=== PATIENT | female | born 1955 | race Caucasian/White ===

== ENCOUNTER 2017-06-03 04:05 | Observation (INO) | payer OTHER ==
[2017-06-03] VITALS (7 sets, daily range): BP systolic 117–161; BP diastolic 72–95; PULSE 71–93; RESP 14–20; TEMP 97.7–98.5; O2SAT 95–98
[~2017-06-03] VITALS: Ht 172.7 cm; Wt 103.6 kg
[~2017-06-03 04:05] MED LIST: ACET325T15 PO; ALPR.25 PO; ASA325 PO; BONI150T PO; CALC1TAB12 PO; CALC250 PO; COZA50TA PO; ESCI10TA PO; LEVO.075 PO; LIPI40TA PO; TIZA4 PO; VITA-142 PO; VITE400 PO; WARF-21 PO; WHEE1EAC
[2017-06-03] MEDS ORDERED: APIX5TAB PO (04:26)
[2017-06-03 05:09] LABS: AUTOMATED NEUTROPHIL # 6.2 TH/MM3 (1.8-7.7); BASOPHIL % 0.4 % (0.0-2.0); EOSINOPHIL # 0.1 TH/MM3 (0-0.4); EOSINOPHIL % 1.4 % (0.0-4.0); HEMATOCRIT 46.1 % (35.0-46.0); HEMOGLOBIN 15.8 GM/DL (11.6-15.3); LYMPH % 13.6 % (9.0-44.0); LYMPHOCYTE # 1.1 TH/MM3 (1.0-4.8); MEAN CELL VOLUME 95.2 FL (80.0-100.0); MEAN CORPUSCULAR HEMOGLOBIN 32.7 PG (27.0-34.0); MEAN CORPUSCULAR HGB CONC 34.4 % (32.0-36.0); MEAN PLATELET VOLUME 7.2 FL (7.0-11.0); MONOCYTE # 0.7 TH/MM3 (0-0.9); NEUT % 76.6 % (16.0-70.0); PLATELET COUNT 248 TH/MM3 (150-450); RED BLOOD COUNT 4.84 MIL/MM3 (4.00-5.30); RED CELL DISTRIBUTION WIDTH 13.4 % (11.6-17.2); WHITE BLOOD COUNT 8.1 TH/MM3 (4.0-11.0)
--- NOTE | 2017-06-03 05:21 | PD ---
HPI Chief Complaint: General Weakness Time Seen by Provider: 04:30 Travel History International Travel<30 days: No Contact w/Intl Traveler<30days: No Traveled to known affect area: No History of Present Illness HPI The patient is a 61 year old female who presents to the [facility] emergency department with a history of generalized weakness in the lower extremities that she reports began this evening. She reports that she believes that she overdid it with her activity. 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 The patient reports that she is on Eliquis. She reports that she has been getting around with a walker. She reports that she did extra exercise on her elliptical earlier today and also did several circles around her kitchen. The patient's neurologic history is also complicated by having syringomyelia and Arnold-Chiari malformation with multiple surgeries and residual weakness of the left upper extremity and some weakness of the slip laster of the right upper extremity to a lesser degree. The patient additionally reports that she had a stroke in March 2017 and went to [place] for rehabilitation up until the end of March. She reports that she is interested in going back to [place] for continued rehabilitation. On review of systems otherwise, the patient denies having any known recent fevers, cough or congestion, new neck pain, chest pain, shortness of breath, abdominal pain, vomiting, urinary symptoms, or new focal neurologic symptoms. The patient was brought in by ambulance services and had a normal blood sugar noted prior to arrival. The patient reports on review of systems having diarrhea since starting on Eliquis usually is soft stool 4 times per day. She denies having any blood in her stool or black or tarry stools [facility] Past Medical History Narrative Medical The patient's past medical history is significant for syringomyelia, Arnold- Chiari malformation, diabetes mellitus, osteopenia, chronic myofascial and neuropathic pain with neuropathy, history of hyperlipidemia, hypertension, seasonal allergies, history of hypothyroid disorder, history of cerebrovascular accident in March 2017, history of left basal artery occlusion in April of 2017, history of concussion in 2000. Hx Anticoagulant Therapy: Yes Arthritis: Yes Asthma: No Autoimmune Disease: No Blood Disorders: No Anxiety: No Depression: No Heart Rhythm Problems: No Cancer: No Cardiovascular Problems: No High Cholesterol: Yes Chemotherapy: No Chest Pain: No Congestive Heart Failure: No COPD: No Cerebrovascular Accident: Yes Diabetes: No Diminished Hearing: No Endocrine: No Gastrointestinal Disorders: Yes (always constipated ) GERD: No Genitourinary: No Hiatal Hernia: No Hypertension: Yes Immune Disorder: No Kidney Stones: No Musculoskeletal: Yes (bilateral hands / back) Neurologic: Yes Psychiatric: No Reproductive: No Respiratory: No Migraines: No Radiation Therapy: No Renal Failure: No Seizures: Yes (2000 after falling from a horse) Sickle Cell Disease: No Sleep Apnea: No Thyroid Disease: Yes (hypoactive thyroid) Ulcer: No Influenza Vaccination: Yes ?: Not Past Surgical History Narrative Surgical The patient's past surgical history is significant for right wrist ORIF, appendectomy, suboccipital craniotomy, laminectomy, myelotomy, and drainage of syrinx. AICD: No Appendectomy: Yes Arteriovenous Shunt: Yes (in spinal cord ) Cardiac Surgery: No Ear Surgery: No Endocrine Surgery: No Eye Surgery: No Genitourinary Surgery: Yes Gynecologic Surgery: No Insulin Pump: No Joint Replacement: No Neurologic Surgery: Yes Oral Surgery: Yes (wisdom teeth removed / crowns) Pacemaker: No Thoracic Surgery: No Other Surgery: Yes Social History Alcohol Use: Yes Tobacco Use: No Substance Use: No Allergies-Medications (Allergen,Severity, Reaction): Coded Allergies: No Known Allergies (Unverified Adverse Reaction, Unknown, 06/03/17) Reported Meds & Prescriptions Reported Meds & Active Scripts Active Xanax (Alprazolam) 0.25 Mg Tab 0.25 Mg PO Q12HR PRN Zanaflex (Tizanidine HCl) 4 Mg Tab 4 Mg PO BID PRN 30 Days Cozaar (Losartan Potassium) 50 Mg Tab 50 Mg PO BID@0600,1800 30 Days Synthroid (Levothyroxine Sodium) 75 Mcg Tab 75 Mcg PO DAILY@0600 30 Days Lipitor (Atorvastatin Calcium) 40 Mg Tab 40 Mg PO HS Wheelchair 1 Each Each Each Reported Eliquis (Apixaban) 5 Mg Tab 5 Mg PO BID Calcium 500 +D (Calcium Carbonate-Cholecalciferol) 500-400 Mg-Unit Tab 1 Tab PO BID Review of Systems Except as stated in HPI: all other systems reviewed are Neg General / Constitutional: No: Fever Eyes: No: Visual changes HENT: No: Headaches Cardiovascular: No: Chest Pain or Discomfort Respiratory: No: Shortness of Breath Gastrointestinal: Positive: Diarrhea, Changes in Bowel Habits, No: Nausea, Vomiting, Abdominal Pain, Hematemesis, Hematochezia, Indigestion, Loss of Appetite Genitourinary: No: Dysuria Musculoskeletal: No: Pain Skin: No Rash Neurologic: Positive: Weakness, No: Focal Abnormalities, Change in Mentation, Slurred Speech, Sensory Disturbance Psychiatric: No: Depression Endocrine: No: Polydipsia Hematologic/Lymphatic: No: Easy Bruising Physical Exam Narrative General: The patient is a well-developed well-nourished female in no acute distress. Head and Neck exam: Head is normocephalic atraumatic. Eyes: EOMI, pupils are equal round and reactive to light. Nose: Midline septum with pink mucous membranes Mouth: Dentition unremarkable. Moist mucus membranes. Posterior oropharynx is not erythematous. No tonsillar hypertrophy. Uvula midline. Airway patent. Neck: No palpable lymphadenopathy. No nuchal rigidity. No thyromegaly. Cardiovascular: Regular rate and rhythm without murmurs, gallops, or rubs. No pulse deficit to the extremities on simultaneous auscultation and palpation of her radial artery. Lungs: Clear to auscultation bilaterally. No wheezes, rhonchi, or rales. Abdomen: Soft, without tenderness to palpation in all 4 quadrants of the abdomen. No guarding, rebound, or rigidity. Normal bowel sounds are audible. No tenderness on palpation of McBurney's point. Negative Laura sign. Extremities: No clubbing, cyanosis, or edema. 2+ pulses in all 4 extremities. No calf tenderness on palpation. The patient has deformity of bilateral hands which she reports is related to her history of syringomyelia and Arnold-Chiari malformation with neuropathy causing contractures. Back: No spinous process tenderness to palpation. No costovertebral angle tenderness to palpation. Neurologic Exam: The patient has no facial asymmetry noted. Cranial nerves II through XII appear to be intact. The patient has no dysarthria, no difficulty with word finding ability or aphasia. The patient has strength that is 5/5 in bilateral lower extremities, strength is 5/5 in the right upper extremity, strength is 4/ 5 in the left upper extremity. The patient reports that this is at her baseline from her history of syringomyelia. Skin Exam: No rash noted. Intact skin that is warm and dry. Data Data Last Documented VS Vital Signs Date Time Temp Pulse Resp B/P (MAP) Pulse Ox O2 Delivery O2 Flow Rate FiO2 06/03/17 04:40 20 06/03/17 04:14 98.1 93 161/72 (101) 96 Orders Orders Electrocardiogram (06/03/17 04:34) Complete Blood Count With Diff (06/03/17 04:34) Comprehensive Metabolic Panel (06/03/17 04:34) Troponin I (06/03/17 04:34) Prothrombin Time / Inr (Pt) (06/03/17 04:34) Act Partial Throm Time (Ptt) (06/03/17 04:34) Lipase (06/03/17 04:34) Urinalysis - C+S If Indicated (06/03/17 04:34) Magnesium (Mg) (06/03/17 04:34) Thyroid Stimulating Hormone (06/03/17 04:34) Ct Brain W/O Iv Contrast(Rout) (06/03/17 04:34) Iv Access Insert/Monitor (06/03/17 04:34) Ecg Monitoring (06/03/17 04:34) Oximetry (06/03/17 04:34) Place In Observation (06/03/17 ) Code Status (06/03/17 06:33) Vital Signs (Adult) Q4H (06/03/17 06:33) Activity Oob With Assistance (06/03/17 06:33) [employer] / Telemetry .CONTINUOUS (06/03/17 06:33) Diet Heart Healthy (06/03/17 Breakfast) Sodium Chloride 0.9% Flush (Ns Flush) (06/03/17 06:45) Sodium Chloride 0.9% Flush (Ns Flush) (06/03/17 09:00) Acetaminophen (Tylenol) (06/03/17 06:45) Ondansetron Inj (Zofran Inj) (06/03/17 06:45) Basic Metabolic Panel (Bmp) (06/04/17 06:00) Comprehensive Metabolic Panel (06/04/17 06:00) Chest, Single Ap (06/03/17 06:33) Pt Request For Service (06/03/17 06:33) Scd Bilateral/Knee High SHIMA.BID (06/03/17 06:33) Naloxone Inj (Narcan Inj) (06/03/17 06:45) Magnesium Hydroxide Liq (Milk Of Magnesi (06/03/17 06:45) Consult Neurology (06/03/17 ) Thyroid Stimulating Hormone (06/04/17 06:00) Admit Order (Ed Use Only) (06/03/17 06:41) Labs Laboratory Tests Test 06/03/17 04:45 White Blood Count 8.1 TH/MM3 Red Blood Count 4.84 MIL/MM3 Hemoglobin 15.8 GM/DL Hematocrit 46.1 % Mean Corpuscular Volume 95.2 FL Mean Corpuscular Hemoglobin 32.7 PG Mean Corpuscular Hemoglobin Concent 34.4 % Red Cell Distribution Width 13.4 % Platelet Count 248 TH/MM3 Mean Platelet Volume 7.2 FL Neutrophils (%) (Auto) 76.6 % Lymphocytes (%) (Auto) 13.6 % Monocytes (%) (Auto) 8.0 % Eosinophils (%) (Auto) 1.4 % Basophils (%) (Auto) 0.4 % Neutrophils # (Auto) 6.2 TH/MM3 Lymphocytes # (Auto) 1.1 TH/MM3 Monocytes # (Auto) 0.7 TH/MM3 Eosinophils # (Auto) 0.1 TH/MM3 Basophils # (Auto) 0.0 TH/MM3 CBC Comment DIFF FINAL Differential Comment Prothrombin Time 10.6 SEC Prothromb Time International Ratio 1.0 RATIO Activated Partial Thromboplast Time 25.9 SEC Blood Urea Nitrogen 8 MG/DL Creatinine 0.71 MG/DL Random Glucose 115 MG/DL Total Protein 6.9 GM/DL Albumin 3.5 GM/DL Calcium Level 9.1 MG/DL Magnesium Level 2.2 MG/DL Alkaline Phosphatase 90 U/L Aspartate Amino Transf (AST/SGOT) 20 U/L Alanine Aminotransferase (ALT/SGPT) 30 U/L Total Bilirubin 0.4 MG/DL Sodium Level 146 MEQ/L Potassium Level 3.6 MEQ/L Chloride Level 111 MEQ/L Carbon Dioxide Level 27.2 MEQ/L Anion Gap 8 MEQ/L Estimat Glomerular Filtration Rate 84 ML/MIN Troponin I LESS THAN 0.02 NG/ML Lipase 101 U/L Free Thyroxine 1.47 NG/DL Thyroid Stimulating Hormone 3rd Gen 0.013 uIU/ML MDM Medical Decision Making Medical Screen Exam Complete: Yes Emergency Medical Condition: Yes Medical Record Reviewed: Yes Interpretation(s) Last Impressions Chest X-Ray 06/03/17 0633 Signed Impressions: Service Date/Time: Saturday, June 03, 2017 06:41 - CONCLUSION: No acute disease. There is no evidence of pneumonia. Brent Cadena MD Head CT 06/03/17 0434 Signed Impressions: Service Date/Time: Saturday, June 03, 2017 04:58 - CONCLUSION: 1. Stable remote infarct left occipital lobe. No acute findings. Jose Merritt MD Head Magnetic Resonance Angiography 06/03/17 0000 Signed Impressions: Service Date/Time: Saturday, June 03, 2017 16:23 - CONCLUSION: Normal examination. No evidence of significant stenosis or occlusive disease. No evidence of intraluminal filling defects, vasculopathy, aneurysm or vascular malformation. Haim Cruz MD Cervical Spine MRI 06/03/17 0000 Signed Impressions: Service Date/Time: Saturday, June 03, 2017 16:23 - CONCLUSION: 1. Deformity of the C5 and C6 vertebral bodies which are fused and appears post traumatic. 2. Posterior laminectomy defect from C2-C5 3. Degenerative disc disease at C4-5 and C6-7 as described. 4. No evidence of acute bone marrow edema, fracture disc herniation or spinal stenosis. 5. 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 Haim Cruz MD Brain MRI 06/03/17 0000 Signed Impressions: Service Date/Time: Saturday, June 03, 2017 16:23 - CONCLUSION: 1. Subacute left occipital lobe infarct 2. Otherwise stable exam without evidence of acute process. 3. No evidence of enhancing intra-or extra-axial lesions. Haim Cruz MD Differential Diagnosis Intracranial abnormality, versus electrolyte derangements causing generalized weakness, versus dehydration, versus acute coronary syndrome, versus infectious process Narrative Course During the course of the patient's emergency department visit, the patient's history, examination, and differential diagnosis were reviewed with the patient. The patient was placed on a shade hanger with oximetry and frequent blood pressure monitoring. The patient had IV access obtained and blood work sent for analysis. An EKG was done on arrival. The patient's EKG shows a sinus rhythm heart rate of 89, QRS duration 102 ms, QTC [address] segment elevation is noted. The patient's studies were reviewed and remarkable for A white count of 8.1, hemoglobin 15.8, platelets 248 was 76.6 neutrophils. CMP is remarkable for sodium of 146, chloride 111, glucose 115, troponin I less than 0.02, lipase 101 , TSH is low at 0.013. PT PTT unremarkable, urinalysis is unremarkable. Chest x-ray shows no acute abnormality. CT scan of the brain shows an occipital infarct and left occiput that is stable and remote according to the radiologist. The patient will be admitted to the hospital for generalized weakness and frequent falls. The patient's results were discussed with the patient, including the plan of care. I explained that further testing and/ or monitoring is indicated based on the patient's history, examination, and/ or laboratory findings. Therefore, I recommended admission for additional evaluation. The patient expressed understanding and was agreeable with this plan. The patient was admitted to the hospital in stable condition and sent to a bed under the care of the [facility] service. Physician Communication Physician Communication The patient's case including history, pertinent physical examination findings, and laboratory studies were discussed with Dr. Bradshaw. It was agreed that the patient would be admitted to the [facility] service. Diagnosis Primary Impression: Generalized weakness Admitting Information Admitting Physician Requests: Observation Scripts Alprazolam (Xanax) 0.25 Mg Tab 0.25 MG PO Q12HR Y for ANXIETY, #120 TAB 0 Refills Prov: Dev Bradshaw DO 06/03/17 Tizanidine (Zanaflex) 4 Mg Tab 4 MG PO BID Y for MUSCLE SPASM for 30 Days, #120 TAB 3 Refills Prov: Dev Bradshaw DO 06/03/17 Karen Pool MD Jun 03, 2017 05:21
[2017-06-03 05:22] LABS: PROTHROMBIN TIME - PATIENT 10.6 SEC (9.8-11.6)
--- NOTE | 2017-06-03 05:28 | RADRPT ---
EXAM DATE/TIME: 06/03/2017 04:58 [facility] COMPARISON: No previous studies available for comparison. INDICATIONS : Weakness. Fell twice. RADIATION DOSE: 36.81 CTDIvol (mGy) MEDICAL HISTORY : Cerebrovascular disease. Seizures. Hypertension. SURGICAL HISTORY : Appendectomy. Craniotomy. ENCOUNTER: Initial ACUITY: 1 day PAIN SCALE: 0/10 LOCATION: cranial TECHNIQUE: Multiple contiguous axial images were obtained of the head. Using automated exposure control and adj ustment of the mA and/or kV according to patient size, radiation dose was kept as low as reasonably a chievable to obtain optimal diagnostic quality images. DICOM format image data is available electro nically for review and comparison. FINDINGS: Compare April 26. Stable remote infarct left occipital lobe. No acute intracranial mass, hemorrhag e or shift. Esophagus. No acute bony abnormalities. CONCLUSION: 1. Stable remote infarct left occipital lobe. No acute findings. Jose Merritt MD on June 03, 2017 at 5:25 Board Certified Radiologist. This report was verified electronically.
[2017-06-03 05:38] LABS: ALBUMIN 3.5 GM/DL (3.4-5.0); ALT (GPT) 30 U/L (10-53); AST (GOT) 20 U/L (15-37); BICARBONATE 27.2 MEQ/L (21.0-32.0); BLOOD UREA NITROGEN 8 MG/DL (7-18); CALCIUM 9.1 MG/DL (8.5-10.1); CHLORIDE 111 MEQ/L (98-107); CREATININE 0.71 MG/DL (0.50-1.00); GLOMERULAR FILTRATION RATE 84 ML/MIN (>89); GLUCOSE,RANDOM 115 MG/DL (74-106); MAGNESIUM 2.2 MG/DL (1.5-2.5); SODIUM (NA) 146 MEQ/L (136-145)
[2017-06-03 05:48] LABS: ALKALINE PHOSPHATASE 90 U/L (45-117); TOTAL BILIRUBIN ADULT 0.4 MG/DL (0.2-1.0); TOTAL PROTEIN 6.9 GM/DL (6.4-8.2); TROPONIN I LESS THAN 0.02 NG/ML (0.02-0.05)
[2017-06-03] MEDS ORDERED: TIZA4 PO (06:43)
[2017-06-03] MEDS ORDERED: ALPR.25 PO (06:43)
[2017-06-03] MEDS ORDERED: NALOXONE HCL 0.4 MG/ML AMP IV PUSH PRN ×2 (06:45→11:45)
[2017-06-03] MEDS ORDERED: SODIUM CHLORIDE 0.9% FLUSH 10 ML FLUSH IV FLUSH PRN ×2 (06:45→11:45)
[2017-06-03] MEDS ORDERED: MAGNESIUM HYDROXIDE SUSP 30 ML CUP PO PRN ×2 (06:45→11:45)
[2017-06-03] MEDS ORDERED: ACETAMINOPHEN 325 MG TAB PO PRN ×2 (06:45→11:45)
[2017-06-03] MEDS ORDERED: ONDANSETRON HCL 4 MG/2 ML VIAL IVP PRN ×2 (06:45→11:45)
--- NOTE | 2017-06-03 07:00 | RADRPT ---
EXAM DATE/TIME: 06/03/2017 06:41 [facility] COMPARISON: CHEST SINGLE AP, March 14, 2017, 15:28. INDICATIONS : Cough. MEDICAL HISTORY : Cerebrovascular disease. Seizures. Hypertension. SURGICAL HISTORY : Appendectomy. Craniotomy. ENCOUNTER: Initial ACUITY: 1 day PAIN SCORE: 0/10 LOCATION: Bilateral chest FINDINGS: A single view of the chest demonstrates the lungs to be symmetrically aerated without evidence of mas s, infiltrate or effusion. The cardiomediastinal contours are unremarkable. Osseous structures are intact. Mild atherosclerotic changes are again noted in the aorta with calcification. The overlying e lectrocardiogram leads. The left hemidiaphragm remains mildly elevated. CONCLUSION: No acute disease. There is no evidence of pneumonia. Brent Cadena MD on June 03, 2017 at 6:58 Board Certified Radiologist. This report was verified electronically.
[2017-06-03 07:45] LABS: BACTERIA, URINE RARE /hpf; BILIRUBIN, URINE NEG (NEG); BLOOD, URINE NEG (NEG); GLUCOSE,URINE NEG (NEG); KETONE, URINE NEG (NEG); MUCUS URINE FEW /lpf (OCC); NITRITE,URINE NEG (NEG); PH, URINE 6.5 (5.0-8.5); SQUAMOUS EPITHELIAL CELL URINE 1 /hpf (0-5); URINE COLOR YELLOW (YELLW/STRAW); URINE LEUKOCYTE ESTERASE SMALL (NEG)
[2017-06-03] MEDS ORDERED: SODIUM CHLORIDE 0.9% FLUSH 10 ML FLUSH IV FLUSH SCH (09:00)
[2017-06-03] MEDS: APIXABAN 5 MG TABLET PO SCH ×2 (09:13→22:58)
[2017-06-03] MEDS: ALPRAZolam 0.25 MG TAB PO PRN ×2 (09:37→22:58)
--- NOTE | 2017-06-03 11:05 | HHI.HP ---
[facility] Service Family Medicine Primary Care Physician Ria Solis MD Admission Diagnosis Generalized weakness, recurrent falls, low TSH Diagnoses: International Travel<30 Days: No Contact w/Intl Traveler<30days: No Known Affected Area: No History of Present Illness Mrs. Rowland is a 61-year-old Female w/PHMx of syringomyelia and chronic left sided weakness from syrinx; diabetes, hypertension, hyperlipidemia and CVA in March 2017 and again CVA on 04/26/17. Patient states that since her last stroke she has had great difficulty rehabilitating herself at home. She has tried to organize outpatient physical therapy has only been able to do it twice. It has generally been very difficult for her and friend to help her mobilize in her current state. Yesterday she "did too much"; she was on the exercise bike and did a lot more activity than usual. She got sore around her buttocks area and the top of her hips from the excessive exercise. Around 9: 15PM she went to the bathroom and after getting off the toilet grab her walker and fell. Her and neighbor were unable to pick her up in the paramedics had to be called to pick her up. Only her knees and bottom make contact with the floor. She did not hit her head at any point. She denies any confusion, vertigo, dizziness before the fall. She states she fell because her muscles felt weak. She fell again for second time last night, and The patient came into the ED this morning because she states that she is no longer feeling safe at home. Because of the multiple falls and lack of adequate rehabilitation she would like to go back to [place]. At this time knees and gluteal muscles are still sore. Denies any headache/ confusion. Denies any CP/SOB/dizziness. She denies any acute onset focal weaknesses. Denies any numbness or tingling of any extremity. 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 There have been no recent medication changes, aside from stopping Toradol. (Iman Davey MD R2) Review of Systems Constitutional: DENIES: Fever, Weight loss Endocrine: DENIES: Heat/cold intolerance, Polydipsia Eyes: DENIES: Eye inflammation, Eye pain Ears, nose, mouth, throat: DENIES: Throat pain, Hoarseness Respiratory: DENIES: Sputum production, Shortness of breath Cardiovascular: DENIES: Syncope, Dyspnea on Exertion Gastrointestinal: DENIES: Diarrhea, Nausea Genitourinary: DENIES: Abnormal vaginal bleeding, Dysmenorrhea Musculoskeletal: DENIES: Joint Swelling, Back pain Neurologic: DENIES: Headache Psychiatric: DENIES: Depression (Iman Davey MD R2) Past Family Social History Past Medical History CVA March and April 2017 preDM (on steroids) 11/17 osteopenia 2013 (Pt s/p fosamax weekly estim 2003- 2008), now on bisphosphanate holiday Chronic myofascial and neuropathic pain with neuropathy Chiari malformation with syringomyelia Hyperlipidemia Hypertension Seasonal allergies menopause 2006 Hypothyroid 1989 desensitization shots Right wrist fracture 2007 Left clavicle fracture age 4 Right leg fracture age 12 Head injury with concussion 2000 Past Surgical History Lap Appy 01/17, benign pathology Right wrist 2007 Suboccipital craniectomy, laminectomy C1-C4, myelotomy C4, with insertion of Silastic T-tube for drainage of syrinx into subarachnoid space August 1989 (Iman Davey MD R2) Allergies: Coded Allergies: No Known Allergies (Unverified Adverse Reaction, Unknown, 06/03/17) Family History Dad age 59 MA, history tobacco and alcohol Mom age 69 complications of colon cancer diagnosed in her mid 60s, also had rheumatoid arthritis Siblings with hyperlipidemia otherwise alive and well. Social History ,no natural children, spouse diagnosed with Hep B/ liver transplant has stepdaughter that she helped raise from age 9, and 2 grandchildren. 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 SKIN: No rashes, ecchymoses or lesions. Cool and dry. HEAD: Atraumatic. Normocephalic. No temporal or scalp tenderness. EYES: Pupils equal round and reactive. Extraocular motions intact. No scleral icterus. No injection or drainage. ENT: Nose without bleeding, purulent drainage or septal hematoma. Throat without erythema, tonsillar hypertrophy or exudate. Uvula midline. Airway patent. NECK: Trachea midline. No JVD or lymphadenopathy. Supple, nontender, no meningeal signs. CARDIOVASCULAR: Regular rate and rhythm without murmurs, gallops, or rubs. RESPIRATORY: Clear to auscultation. Breath sounds equal bilaterally. No wheezes , rales, or rhonchi. GASTROINTESTINAL: Abdomen soft, non-tender, nondistended. No hepato-splenomegaly , or palpable masses. No guarding. MUSCULOSKELETAL: Extremities without clubbing, cyanosis, or edema. No joint tenderness, effusion, or edema noted. No calf tenderness. Negative Homans sign bilaterally.All extremities 4/5 strength equally. Chronic contracture of hands unchanged NEUROLOGICAL: Awake and alert. Cranial nerves II through XII intact. Motor and sensory grossly within normal limits. Five out of 5 muscle strength in all muscle groups. Normal speech. Laboratory Laboratory Tests Test 06/03/17 04:45 06/03/17 07:15 White Blood Count 8.1 Red Blood Count 4.84 Hemoglobin 15.8 Hematocrit 46.1 Mean Corpuscular Volume 95.2 Mean Corpuscular Hemoglobin 32.7 Mean Corpuscular Hemoglobin Concent 34.4 Red Cell Distribution Width 13.4 Platelet Count 248 Mean Platelet Volume 7.2 Neutrophils (%) (Auto) 76.6 Lymphocytes (%) (Auto) 13.6 Monocytes (%) (Auto) 8.0 Eosinophils (%) (Auto) 1.4 Basophils (%) (Auto) 0.4 Neutrophils # (Auto) 6.2 Lymphocytes # (Auto) 1.1 Monocytes # (Auto) 0.7 Eosinophils # (Auto) 0.1 Basophils # (Auto) 0.0 CBC Comment DIFF FINAL Differential Comment Prothrombin Time 10.6 Prothromb Time International Ratio 1.0 Activated Partial Thromboplast Time 25.9 Blood Urea Nitrogen 8 Creatinine 0.71 Random Glucose 115 Total Protein 6.9 Albumin 3.5 Calcium Level 9.1 Magnesium Level 2.2 Alkaline Phosphatase 90 Aspartate Amino Transf (AST/SGOT) 20 Alanine Aminotransferase (ALT/SGPT) 30 Total Bilirubin 0.4 Sodium Level 146 Potassium Level 3.6 Chloride Level 111 Carbon Dioxide Level 27.2 Anion Gap 8 Estimat Glomerular Filtration Rate 84 Troponin I LESS THAN 0.02 Lipase 101 Thyroid Stimulating Hormone 3rd Gen 0.013 Urine Color YELLOW Urine Turbidity CLEAR Urine pH 6.5 Urine Specific [place] 1.009 Urine Protein NEG Urine Glucose (UA) NEG Urine Ketones NEG Urine Occult Blood NEG Urine Nitrite NEG Urine Bilirubin NEG Urine Urobilinogen LESS THAN 2.0 Urine Leukocyte Esterase SMALL Urine RBC 1 Urine WBC 1 Urine Squamous Epithelial Cells 1 Urine Bacteria RARE Urine Mucus FEW Microscopic Urinalysis Comment CULT NOT INDICATED (Iman Davey MD R2) Result Diagram: 06/03/1744406/03/17444 Caprini VTE Risk Assessment Caprini VTE Risk Assessment: No/Low Risk (score <= 1) Caprini Risk Assessment Model Point Value = 1 Point Value = 2 Point Value = 3 Point Value = 5 Age 41-60 Minor surgery BMI > 25 kg/m2 Swollen legs Varicose veins or History of unexplained or recurrent spontaneous Oral contraceptives or hormone replacement Sepsis (< 1 month) Serious lung disease, including pneumonia (< 1 month) Abnormal pulmonary function Acute myocardial infarction Congestive heart failure (< 1 month) History of inflammatory bowel disease Medical patient at bed rest Age 61-74 Arthroscopic surgery Major open surgery (> 45 min) Laparoscopic surgery (> 45 min) Malignancy Confined to bed (> 72 hours) Immobilizing plaster cast Central venous access Age >= 75 History of VTE Family history of VTE Factor V Leiden Prothrombin [id number] Lupus anticoagulant Anticardiolipin antibodies Elevated serum homocysteine Heparin-induced thrombocytopenia Other congenital or acquired thrombophilia Stroke (< 1 month) Elective arthroplasty Hip, pelvis, or leg fracture Acute spinal cord injury (< 1 month) Prophylaxis Regimen Total Risk Factor Score Risk Level Prophylaxis Regimen 0-1 Low Early ambulation 2 Moderate Order ONE of the following: *Sequential Compression Device (SCD) *Heparin 5000 units SQ BID 3-4 Higher Order ONE of the following medications: *Heparin 5000 units SQ TID *Enoxaparin/Lovenox 40 mg SQ daily (WT < 150 kg, CrCl > 30 mL/min) *Enoxaparin/Lovenox 30 mg SQ daily (WT < 150 kg, CrCl > 10-29 mL/min) *Enoxaparin/Lovenox 30 mg SQ BID (WT < 150 kg, CrCl > 30 mL/min) AND/OR *Sequential Compression Device (SCD) 5 or more Highest Order ONE of the following medications: *Heparin 5000 units SQ TID (Preferred with Epidurals) *Enoxaparin/Lovenox 40 mg SQ daily (WT < 150 kg, CrCl > 30 mL/min) *Enoxaparin/Lovenox 30 mg SQ daily (WT < 150 kg, CrCl > 10-29 mL/min) *Enoxaparin/Lovenox 30 mg SQ BID (WT < 150 kg, CrCl > 30 mL/min) AND *Sequential Compression Device (SCD) (Iman Davey MD R2) Assessment and Plan Assessment and Plan Mrs. Rowland is a 61-year-old Female w/PHMx of syringomyelia and chronic left sided weakness from syrinx; diabetes, hypertension, hyperlipidemia, and CVA x 2 presenting with persistent weakness and falls s/p CVA. Code Status Full Code (Iman Davey MD R2) Attending Attestation THIS CASE WAS DISCUSSED WITH THE RESIDENT PHYSICIAN. I HAVE REVIEWED THE RECORD AND AGREE WITH THE ABOVE NOTE AND PLAN OF CARE WAS DISCUSSED. I HAVE AUTHORIZED THE ORDER FOR PLACEMENT IN OUT-PATIENT OBSERVATION STATUS. (Ria Solis MD) Problem List: (1) Anxiety ICD Codes: F41.9 - Anxiety disorder, unspecified Status: Chronic Plan: Continue home Xanax 0.25 mg by mouth twice a day when necessary anxiety (2) HTN (hypertension) ICD Codes: I10 - Essential (primary) hypertension Status: Chronic Plan: BPs WNL Continue home blood pressure medication; losartan 50 mg twice a day f/u BPs (3) Impaired mobility and activities of daily living ICD Codes: Z74.09 - Other reduced mobility Status: Acute Plan: Generalized weakness and deconditioning since discharge on 05/04 Differential includes: lack of adequate rehab s/p CVA on 04/26 vs. neurological sx of hyperthyroidism ( proximal muscle weakness) versus electrolyte abnormalities versus anemia versus UTI BMP and CBC within normal limits, UA negative, vital signs stable TSH is 0.013 (low), free T4 1 0.47 (normal) f/u with [facility] Follow up with PT and OT See plan under Hypothyroidism below (4) Hypothyroid ICD Codes: E03.9 - Hypothyroidism, unspecified Status: Chronic Plan: History of hypothyroidism TSH severely reduced (see less than 0.05), with normal free T4 Reduce dosing 25 g per day Reduce home medication of levothyroxine 75 g daily to 50 g daily Follow-up TSH in 6-8 weeks (5) History of CVA (cerebrovascular accident) ICD Codes: Z86.73 - Personal history of transient ischemic attack (TIA), and cerebral infarction without residual deficits Status: Chronic Plan: Continue previous recommendations per neurology Continue statin; Lipitor 40 mg by mouth at bedtime Continue anticoagulation; Eliquis 5 mg by mouth twice a day No indication of acute onset focal deficits or acute CVA at this admission (6) FEN/GI/PPx Status: Acute Plan: Fluids: Encourage by mouth hydration Electrolytes: Within normal limits, follow-up and repeat as needed Nutrition: Regular by mouth diet DVT prophylaxis: Continue Eliquis, SCDs GI prophylaxis: Not indicated (Iman Davey MD R2) Iman Davey MD R2 Jun 03, 2017 11:05 Ria Solis MD Jun 04, 2017 08:41
[2017-06-03] MEDS ORDERED: SENNOSIDES 8.6 MG TAB PO PRN (11:45)
[2017-06-03] MEDS ORDERED: LACTULOSE SYRUP 20 GM/30 ML CUP PO PRN (11:45)
[2017-06-03] MEDS ORDERED: BISACODYL 10 MG SUPP RECTAL PRN (11:45)
--- NOTE | 2017-06-03 12:20 | EKG ---
Date Performed: 06/03/2017 Time Performed: 04:11:11 PTAGE: 61 years EKG: Sinus rhythm NORMAL ECG NO PREVIOUS TRACING DOCTOR: Shayan Britton Interpretating Date/Time 06/03/2017 12:16:30
--- NOTE | 2017-06-03 15:07 | MB ---
cc: Giovani Harrison MD, PhD DATE: 06/03/2017 REASON FOR CONSULTATION: Weakness with falls. HISTORY OF PRESENT ILLNESS: Ms. Rowland is a very pleasant 61-year-old female who has a history of Arnold Chiari malformation with cervical syringomyelia. She had history of suboccipital craniectomy in the 1980s as well as shunting of the syrinx in the s. She states she had a stroke in March causing her to be weak on the left side. She states she had a blood clot to the back of the brain in April, which caused her to be weak on the right side, as well as the left side and since then has been on Eliquis. Yesterday, she fell twice. She thinks she got weak in general and dizzy. She did start a new medicine Elavil at night on Sunday and thinks she may be having some side effects. PAST MEDICAL HISTORY: As noted above. In addition, she has a history of osteopenia, prediabetes, hyperlipidemia, hypertension, hypothyroidism, appendectomy, right wrist surgery, C1-4 myelotomy for syrinx. NEUROLOGICAL PHYSICAL EXAMINATION: VITAL SIGNS: Her blood pressure 121/76, pulse is 85, respiratory rate is 16, temperature 98 degrees. NEUROLOGIC: Higher cortical functions are normal. Cranial nerves intact. Motor exam: She is weak in both upper and lower extremities. I would rate it 4/5 proximally and distally with diminished fine motor skills in both hands. She has atrophy distally as well in the hands. Reflexes are 2+ symmetric with no Babinski. IMAGING STUDIES: CT of the brain shows remote infarct, left occipital lobe. No acute change identified. LABORATORY DATA: White count 8100, hemoglobin 15.8, hematocrit 46%, platelet count 240,000. Sodium is 146, potassium 3.6, chloride 111, CO2 27, BUN is 8, creatinine 0.71, GFR is 84, glucose 115, AST 20, ALT is 30. TSH 0.013. T4 of 1.47. PT 10.6, INR 1, APTT 25.9. UA negative. IMPRESSION: 1. History of Arnold Chiari malformation and cervical syrinx status post shunting of the syrinx and suboccipital craniotomy. 2. Recent stroke x 2 in March, then in April. By history sounds as though she had a brainstem event. 3. Generalized weakness with falls. This may be sequelae from her previous history. However, I would like to repeat an MRI of the brain to rule out any acute stroke. Also, would like to obtain MRI cervical spine to be sure the cervical syrinx is not enlarging. She may be also having side effects from Elavil and will therefore discontinue that medication. Giovani Harrison MD, PhD MENDEZ/JOSE , 02:51 PM , 03:06 PM
--- NOTE | 2017-06-03 16:56 | RADRPT ---
EXAM DATE/TIME: 06/03/2017 16:23 [facility] COMPARISON: MRA BRAIN W/O CONTRAST, April 27, 2017, 9:49. INDICATIONS : Fall. H/O basilar artery thrombosis. MEDICAL HISTORY : Hypertension. SURGICAL HISTORY : Appendectomy. Fusion, cervical. Craniectomy. Loop recorder. ENCOUNTER: Initial ACUITY: 1 day PAIN SCORE: 0/10 LOCATION: Paraspinal Please note a normal MRA of the brain does not entirely exclude the possibility of a small aneurysm, nor the possibility of distal intracranial vessel disease. TECHNIQUE: 3D time of flight MRA was performed. Source images, multiplanar STS MIP, and 3D volume MIP reconstru ctions were reviewed. FINDINGS: There is excellent visualization of the major intracranial arteries out to the second-order branch ve ssels. There is no evidence for aneurysm, vessel truncation or stenosis, and no evidence for vascula r malformation. CONCLUSION: Normal examination. No evidence of significant stenosis or occlusive disease. No evidence of intraluminal filling defects, vasculopathy, aneurysm or vascular malformation. Haim Cruz MD on June 03, 2017 at 16:52 Board Certified Radiologist. This report was verified electronically.
[2017-06-03] MEDS ORDERED: GADODIAMIDE PF 287 MG/ML 20 ML VIAL (for RAD MRI) IVCONTRAST ONE (16:58)
--- NOTE | 2017-06-03 17:36 | RADRPT ---
EXAM DATE/TIME: 06/03/2017 16:23 [facility] COMPARISON: MRI BRAIN W & W/O CONTRAST, April 26, 2017, 15:05. INDICATIONS : Craniectomy. Loop recorder. CONTRAST: 16 cc Omniscan (gadodiamide) IV MEDICAL HISTORY : Hypertension. SURGICAL HISTORY : Appendectomy. Fusion, cervical. Craniectomy. Loop recorder. ENCOUNTER: Initial ACUITY: 1 day PAIN SCORE: 0/10 LOCATION: cranial TECHNIQUE: Multiplanar, multisequence MRI of the brain was performed both prior to and following the administrat ion of paramagnetic contrast. FINDINGS: An evolving infarct is identified in the left occipital lobe. There is T2 hyperintensity with loss of volume no evidence of restricted diffusion. Some minimal gyral enhancement is noted following admini stration of contrast. The cerebral hemispheres are otherwise stable. There are no characteristic findings of acute infarct, hemorrhage, mass or edema. There are no enhancing intra-or extra-axial lesions. CONCLUSION: 1. Subacute left occipital lobe infarct 2. Otherwise stable exam without evidence of acute process. 3. No evidence of enhancing intra-or extra-axial lesions. Haim Cruz MD on June 03, 2017 at 17:30 Board Certified Radiologist. This report was verified electronically.
[2017-06-03] MEDS: LOSARTAN 50 MG TAB PO SCH (17:50)
--- NOTE | 2017-06-03 17:54 | RADRPT ---
EXAM DATE/TIME: 06/03/2017 16:23 [facility] COMPARISON: No previous studies available for comparison. INDICATIONS : Fall. H/O basilar artery thrombosis. MEDICAL HISTORY : Hypertension. SURGICAL HISTORY : Appendectomy. Fusion, cervical. Craniectomy. Loop recorder. ENCOUNTER: Initial ACUITY: 1 day PAIN SCORE: 0/10 LOCATION: cranial TECHNIQUE: Multiplanar, multisequence MRI examination of the cervical spine was performed. FINDINGS: Alignment: No evidence of traumatic listhesis. There is focal posterior back malalignment at the C5-6 level with posterior displacement of C5 in relation to C6. The vertebral bodies are fused. Osseous structures and facet joints: Significant deformity is identified at the C5 and C6 vertebral bodies. The vertebral bodies are fused however the C5 vertebral body is posteriorly positioned in relation to C6. The C2, C3, C4-C7 vertebral bodies are intact and satisfactory aligned. There is noticeable marrow ed carol. Posterior laminectomy defect is identified this extending from C2-C5 Intervertebral disc spaces: Mild to moderate degenerative disc disease is noted at C4-5 and C6-7. C4-5: Disc space narrowing with mild marginal spurring no evidence of disc herniation. C6-7: Moderate degenerative disc disease with disc space narrowing and marginal disc osteophyte compl ex. There are mild reactive endplate changes. Neurologic structures: The cervical spinal cord is severely atrophic. Central cavity is identified extending throughout the cervical spinal cord extending into the thoracic spine characteristic of a long syrinx. CONCLUSION: 1. Deformity of the C5 and C6 vertebral bodies which are fused and appears post traumatic. 2. Posterior laminectomy defect from C2-C5 3. Degenerative disc disease at C4-5 and C6-7 as described. 4. No evidence of acute bone marrow edema, fracture disc herniation or spinal stenosis. 5. 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 Haim Cruz MD on June 03, 2017 at 17:44 Board Certified Radiologist. This report was verified electronically.
[2017-06-03] MEDS: SODIUM CHLORIDE 0.9% FLUSH 10 ML FLUSH IV FLUSH SCH (21:00)
[2017-06-03] MEDS: ATORVASTATIN 40 MG TAB PO SCH (22:58)
[2017-06-03] MEDS: ZOLPIDEM TARTRATE 5 MG TAB PO PRN (22:58)
[2017-06-04] VITALS (9 sets, daily range): BP systolic 114–134; BP diastolic 73–96; PULSE 75–94; RESP 16–20; TEMP 98.1–99; O2SAT 95–97
[2017-06-04] MEDS ORDERED: LEVOTHYROXINE SODIUM 50 MCG TAB PO SCH (06:00)
[2017-06-04] MEDS: LOSARTAN 50 MG TAB PO SCH ×2 (07:04→18:31)
[2017-06-04 07:26] LABS: CHLORIDE 111 MEQ/L (98-107); SODIUM (NA) 145 MEQ/L (136-145)
[2017-06-04 07:43] LABS: ALBUMIN 3.2 GM/DL (3.4-5.0); ALKALINE PHOSPHATASE 86 U/L (45-117); ALT (GPT) 26 U/L (10-53); AST (GOT) 16 U/L (15-37); BICARBONATE 25.5 MEQ/L (21.0-32.0); BLOOD UREA NITROGEN 7 MG/DL (7-18); CALCIUM 8.9 MG/DL (8.5-10.1); CREATININE 0.56 MG/DL (0.50-1.00); GLOMERULAR FILTRATION RATE 110 ML/MIN (>89); GLUCOSE,RANDOM 99 MG/DL (74-106); TOTAL BILIRUBIN ADULT 0.6 MG/DL (0.2-1.0); TOTAL PROTEIN 6.4 GM/DL (6.4-8.2)
[2017-06-04] MEDS: SODIUM CHLORIDE 0.9% FLUSH 10 ML FLUSH IV FLUSH SCH ×2 (09:00→20:59)
--- NOTE | 2017-06-04 10:29 | HHI.FPPN ---
Subjective Remarks Patient seen and examined this morning. Patient states that she is having some pain in her knees from the fall, otherwise is doing okay. She states that her main goal for this hospitalization is to go back to [facility] for intensive therapy. She is having no new weakness. No chest pain, no shortness of breath , no abdominal pain, no nausea/ vomiting. (Leeann Ryan MD R1) Objective Vitals Vital Signs Date Time Temp Pulse Resp B/P (MAP) Pulse Ox O2 Delivery O2 Flow Rate FiO2 06/04/17 07:49 98.6 84 16 133/96 (108) 95 06/04/17 04:00 98.4 90 20 114/78 (90) 95 06/04/17 00:00 98.6 82 20 134/87 (103) 97 06/03/17 20:00 97.7 81 20 121/73 (89) 96 06/03/17 17:26 81 06/03/17 16:03 98.0 82 14 130/95 (107) 98 06/03/17 13:13 98.5 85 16 121/76 (91) 98 I/O 06/03/17 06/03/17 06/03/17 06/04/17 06/04/17 06/04/17 07:00 15:00 23:00 07:00 15:00 23:00 Intake Total 200 ml 220 ml Output Total 800 ml Balance 200 ml -580 ml Intake Oral 200 ml 220 ml Output Urine Total 800 ml # Voids 2 # Bowel Movements 1 0 (Leeann Ryan MD R1) Result Diagram: 06/03/17 0445 06/04/17 0645 Imaging Last Impressions Chest X-Ray 06/03/17 0633 Signed Impressions: Service Date/Time: Saturday, June 03, 2017 06:41 - CONCLUSION: No acute disease. There is no evidence of pneumonia. Brent Cadena MD Head CT 06/03/17 0434 Signed Impressions: Service Date/Time: Saturday, June 03, 2017 04:58 - CONCLUSION: 1. Stable remote infarct left occipital lobe. No acute findings. Jose Merritt MD Head Magnetic Resonance Angiography 06/03/17 0000 Signed Impressions: Service Date/Time: Saturday, June 03, 2017 16:23 - CONCLUSION: Normal examination. No evidence of significant stenosis or occlusive disease. No evidence of intraluminal filling defects, vasculopathy, aneurysm or vascular malformation. Haim Cruz MD Cervical Spine MRI 06/03/17 0000 Signed Impressions: Service Date/Time: Saturday, June 03, 2017 16:23 - CONCLUSION: 1. Deformity of the C5 and C6 vertebral bodies which are fused and appears post traumatic. 2. Posterior laminectomy defect from C2-C5 3. Degenerative disc disease at C4-5 and C6-7 as described. 4. No evidence of acute bone marrow edema, fracture disc herniation or spinal stenosis. 5. 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 Haim Cruz MD Brain MRI 06/03/17 0000 Signed Impressions: Service Date/Time: Saturday, June 03, 2017 16:23 - CONCLUSION: 1. Subacute left occipital lobe infarct 2. Otherwise stable exam without evidence of acute process. 3. No evidence of enhancing intra-or extra-axial lesions. Haim Cruz MD Objective Remarks GENERAL: Well-nourished, well-developed patient laying in bed in no acute distress. SKIN: Warm and dry. HEAD: Normocephalic. EYES: No scleral icterus. No injection or drainage. NECK: Supple, trachea midline. No JVD or lymphadenopathy. CARDIOVASCULAR: Regular rate and rhythm without murmurs, gallops, or rubs. RESPIRATORY: Breath sounds equal bilaterally. No accessory muscle use. GASTROINTESTINAL: Abdomen soft, non-tender, nondistended. EXTREMITIES: No cyanosis, or edema. NEUROLOGICAL: Awake, alert, and oriented x 3. 4/5 muscle strength in all muscle groups, Right interior specialist strength > left. Normal speech. Cranial nerves 2-12 intact. Medications and IVs Current Medications Medications (Trade) Dose Ordered Sig/Cecilia Route Start Time Stop Time Status Last Admin (Xanax) 0.25 mg Q12HR PRN PO 06/03/17 06:45 06/03/17 22:58 (Eliquis) 5 mg BID PO 06/03/17 09:00 06/03/17 22:58 (Lipitor) 40 mg HS PO 06/03/17 21:00 06/03/17 22:58 (Cozaar) 50 mg BID@0600,1800 PO 06/03/17 18:00 06/04/17 07:04 (Zanaflex) 4 mg BID PRN PO 06/03/17 06:45 06/03/17 17:58 (NS Flush) 2 ml UNSCH PRN IV FLUSH 06/03/17 11:45 (NS Flush) 2 ml BID IV FLUSH 06/03/17 21:00 (Tylenol) 650 mg Q4H PRN PO 06/03/17 11:45 (Zofran Inj) 4 mg Q6H PRN IVP 06/03/17 11:45 (Ambien) 5 mg HS PRN PO 06/03/17 11:45 06/03/17 22:58 (Narcan Inj) 0.4 mg UNSCH PRN IV PUSH 06/03/17 11:45 (Milk Of Magnesia Liq) 30 ml Q12H PRN PO 06/03/17 11:45 (Senokot) 17.2 mg Q12H PRN PO 06/03/17 11:45 (Dulcolax Supp) 10 mg DAILY PRN RECTAL 06/03/17 11:45 (Lactulose Liq) 30 ml DAILY PRN PO 06/03/17 11:45 (Synthroid) 50 mcg DAILY@0600 PO 06/04/17 06:00 06/04/17 07:04 (Leeann Ryan MD R1) A/P Assessment and Plan Mrs. Rowland is a 61-year-old Female w/PMHx of syringomyelia and chronic left sided weakness from syrinx; diabetes, hypertension, hyperlipidemia, and CVA x 2 presenting with persistent weakness and falls s/p CVA. (Leeann Ryan MD R1) Attending Attestation Patient seen and examined. Case reviewed and discussed with the resident team. Agree with plan of care as discussed with me and documented in the resident note. Does not appear there has been a new neurologic event. Appears she is just very weak and needs more aggressive rehab. (Ria Solis MD) Problem List: (1) Impaired mobility and activities of daily living ICD Codes: Z74.09 - Other reduced mobility Status: Acute Plan: Generalized weakness and deconditioning since discharge on 05/04. Patient desires to be admitted to [facility] for therapy. BMP and CBC within normal limits, UA negative, vital signs stable Brain MRI on 06/03 shows left occipital lobe infarct, otherwise stable exam without evidence of acute process Cervical spine MRI on 06/03 shows severe cervical spinal cord atrophy with central syrinx (Spoke with Radiology on 06/04, Syrinx measures from C2-T2 and appears to be unchanged from previous brain MRIs. However, brain MRIs do not show the whole syrinx) Head MRA on 06/03 is normal -Consult Neurology, appreciate recommendations -Sx may be sequelae from previous hx -Repeat MRI of brain, obtain cervical spine MRI -D/C Elavil -Case management is making arrangements for patient to go to [facility] (2) History of CVA (cerebrovascular accident) ICD Codes: Z86.73 - Personal history of transient ischemic attack (TIA), and cerebral infarction without residual deficits Status: Chronic Plan: Continue previous recommendations per neurology Continue statin; Lipitor 40 mg by mouth at bedtime Continue anticoagulation; Eliquis 5 mg by mouth twice a day No indication of acute onset focal deficits or acute CVA at this admission (3) HTN (hypertension) ICD Codes: I10 - Essential (primary) hypertension Status: Chronic Plan: BP continues to be WNL Continue home blood pressure medication; losartan 50 mg twice a day -Continue to monitor (4) Anxiety ICD Codes: F41.9 - Anxiety disorder, unspecified Status: Chronic Plan: Continue home Xanax 0.25 mg by mouth twice a day when necessary anxiety (5) Hypothyroid ICD Codes: E03.9 - Hypothyroidism, unspecified Status: Chronic Plan: History of hypothyroidism TSH is 0.013 (low), free T4 1 0.47 (normal) Will hold tomorrow's dose of levothyroxine due to low TSH, will recheck TSH daily Reduce home medication of levothyroxine 75 g daily to 50 g daily, hold for now Follow-up TSH in 6-8 weeks, as outpatient with PCP upon discharge (6) FEN/GI/PPx Status: Acute Plan: Fluids: Encourage by mouth hydration Electrolytes: Within normal limits, follow-up and repeat as needed Nutrition: Regular by mouth diet DVT prophylaxis: Continue Eliquis, SCDs GI prophylaxis: Not indicated (Leeann Ryan MD R1) Leeann Ryan MD R1 Jun 04, 2017 10:29 Ria Solis MD Jun 04, 2017 16:37
[2017-06-04] MEDS: ALPRAZolam 0.25 MG TAB PO PRN (11:56)
[2017-06-04] MEDS: APIXABAN 5 MG TABLET PO SCH ×2 (11:58→21:00)
[2017-06-04] MEDS ORDERED: ACET325T15 PO (14:20)
--- NOTE | 2017-06-04 14:22 | HHI.DCPOC ---
Discharge Care Plan Diagnosis: (1) Impaired mobility and activities of daily living (2) History of CVA (cerebrovascular accident) Goals to Promote Your Health * To maintain your health at the optimal level, continue physical therapy at [facility] and continue follow up with your primary care physician following hospital discharge. Directions to Meet Your Goals Take your medications as prescribed Follow your dietary instruction Follow activity as directed Keep your appointments as scheduled Take your immunizations and boosters as scheduled If your symptoms worsen call your PCP, if no PCP go to Urgent Care Center or Emergency Room Smoking is Dangerous to Your Health. Avoid second hand smoke Call the 24-hour hour crisis hotline for domestic abuse at Satish Moctezuma MD Jun 04, 2017 14:22
--- NOTE | 2017-06-04 19:32 | HHI.PR ---
Review/Management Diagnosis 1) recent left occipital cva---stable 2) syrinx--appears stable on MRI Plan Will ask neurosurgery opinion regarding the syrinx Diagnosis/Plan: Subjective Subjective Comments No acute events reported Active Medications Current Medications Medications (Trade) Dose Ordered Sig/Cecilia Route Start Time Stop Time Status Last Admin (Eliquis) 5 mg BID PO 06/03/17 09:00 06/04/17 11:58 (Lipitor) 40 mg HS PO 06/03/17 21:00 06/03/17 22:58 (Cozaar) 50 mg BID@0600,1800 PO 06/03/17 18:00 06/04/17 18:31 (NS Flush) 2 ml UNSCH PRN IV FLUSH 06/03/17 11:45 (NS Flush) 2 ml BID IV FLUSH 06/03/17 21:00 06/04/17 09:00 (Tylenol) 650 mg Q4H PRN PO 06/03/17 11:45 (Zofran Inj) 4 mg Q6H PRN IVP 06/03/17 11:45 (Ambien) 5 mg HS PRN PO 06/03/17 11:45 06/03/17 22:58 (Narcan Inj) 0.4 mg UNSCH PRN IV PUSH 06/03/17 11:45 (Milk Of Magnesia Liq) 30 ml Q12H PRN PO 06/03/17 11:45 (Senokot) 17.2 mg Q12H PRN PO 06/03/17 11:45 (Dulcolax Supp) 10 mg DAILY PRN RECTAL 06/03/17 11:45 (Lactulose Liq) 30 ml DAILY PRN PO 06/03/17 11:45 (Synthroid) 50 mcg DAILY@0600 PO 06/04/17 06:00 Future Hold 06/04/17 07:04 (Xanax) 0.25 mg Q12H PO 06/04/17 20:00 (Zanaflex) 4 mg Q12H PO 06/04/17 20:00 Allergies Allergies Coded Allergies No Known Allergies (Unverified Adverse Reaction, Unknown, 06/03/17) Exam I&O / VS Vital Signs Date Time Temp Pulse Resp B/P (MAP) Pulse Ox O2 Delivery O2 Flow Rate FiO2 06/04/17 16:20 98.9 93 16 120/80 (93) 96 06/04/17 11:46 99.0 88 16 132/87 (102) 96 06/04/17 08:00 75 06/04/17 07:49 98.6 84 16 133/96 (108) 95 06/04/17 04:00 98.4 90 20 114/78 (90) 95 06/04/17 00:00 98.6 82 20 134/87 (103) 97 06/03/17 20:00 97.7 81 20 121/73 (89) 96 Respiratory: Lungs CTA, Non-labored respirations, Symmetrical expansion Cardiology: Normal rate, Normal peripheral perfusion, No edema, Regular Rhythm Musculoskeletal: ROM Exam Comments alert, oriented, speech normal CN intact MOTOR--generalized weakness with no focal deficit Objective Radiology Results MRI brain--subacute left occipital cva (pt has h/o cva last March) MRI cervical spine--post op changes, cord atrophy and cervical syrinx with no sign of enlargement or cord expansion Micro and Labs Laboratory Tests Test 06/04/17 06:45 Blood Urea Nitrogen 7 Creatinine 0.56 Random Glucose 99 Total Protein 6.4 Albumin 3.2 Calcium Level 8.9 Alkaline Phosphatase 86 Aspartate Amino Transf (AST/SGOT) 16 Alanine Aminotransferase (ALT/SGPT) 26 Total Bilirubin 0.6 Sodium Level 145 Potassium Level 3.5 Chloride Level 111 Carbon Dioxide Level 25.5 Anion Gap 9 Estimat Glomerular Filtration Rate 110 Thyroid Stimulating Hormone 3rd Gen 0.009 Giovani Harrison MD PhD Jun 04, 2017 19:32
[2017-06-04] MEDS: ATORVASTATIN 40 MG TAB PO SCH (20:59)
[2017-06-04] MEDS: ALPRAZolam 0.25 MG TAB PO SCH (21:01)
[2017-06-04] MEDS: ZOLPIDEM TARTRATE 5 MG TAB PO PRN (22:01)
[2017-06-05] MEDS: LOSARTAN 50 MG TAB PO SCH (06:10)
[2017-06-05 07:08] LABS: HEMOGLOBIN 15.4 GM/DL (11.6-15.3); MEAN CELL VOLUME 93.5 FL (80.0-100.0); MEAN CORPUSCULAR HEMOGLOBIN 32.6 PG (27.0-34.0); MEAN CORPUSCULAR HGB CONC 34.9 % (32.0-36.0); MEAN PLATELET VOLUME 7.3 FL (7.0-11.0); PLATELET COUNT 236 TH/MM3 (150-450); RED CELL DISTRIBUTION WIDTH 13.4 % (11.6-17.2); WHITE BLOOD COUNT 5.7 TH/MM3 (4.0-11.0)
[2017-06-05 07:37] LABS: BICARBONATE 25.3 MEQ/L (21.0-32.0); CALCIUM 9.1 MG/DL (8.5-10.1); CREATININE 0.57 MG/DL (0.50-1.00)
[2017-06-05 08:00] VITALS: PULSE 75
[2017-06-05 08:10] VITALS: BP 130/97; PULSE 86; RESP 16; TEMP 98.1; O2SAT 96
[2017-06-05] MEDS: ALPRAZolam 0.25 MG TAB PO SCH (08:32)
[2017-06-05] MEDS: APIXABAN 5 MG TABLET PO SCH (08:32)
[2017-06-05] MEDS: SODIUM CHLORIDE 0.9% FLUSH 10 ML FLUSH IV FLUSH SCH (08:32)
[2017-06-05 11:39] VITALS: BP 117/76; PULSE 95; RESP 16; TEMP 98.3; O2SAT 95
--- NOTE | 2017-06-05 11:56 | HHI.FPPN ---
Subjective Remarks No acute events overnight. Patient seen and examined this AM. Patient remains afebrile, vitals are stable. The patient's only complaint this morning is of desiring to be discharged up to [facility]. She otherwise does not have any complaints. She specifically denies any fevers, new focal neuro deficit , chest pain, SOB. (Satish Moctezuma MD) Objective Vitals Vital Signs Date Time Temp Pulse Resp B/P (MAP) Pulse Ox O2 Delivery O2 Flow Rate FiO2 06/05/17 11:39 98.3 95 16 117/76 (90) 95 06/05/17 08:10 98.1 86 16 130/97 (108) 96 06/05/17 08:00 75 06/04/17 23:38 98.1 87 17 124/81 (95) 97 06/04/17 23:21 84 06/04/17 20:33 98.8 94 17 124/73 (90) 96 06/04/17 16:20 98.9 93 16 120/80 (93) 96 I/O 06/04/17 06/04/17 06/04/17 06/05/17 06/05/17 06/05/17 07:00 15:00 23:00 07:00 15:00 23:00 Intake Total 220 ml 600 ml Output Total 800 ml 700 ml Balance -580 ml -100 ml Intake Oral 220 ml 600 ml Output Urine Total 800 ml 700 ml # Bowel Movements 0 1 (Satish Moctezuma MD) Result Diagram: 06/05/17 0600 06/05/17 0600 Objective Remarks GENERAL: Well-nourished, well-developed patient laying in bed in no acute distress. SKIN: Warm and dry. HEAD: Normocephalic. EYES: No scleral icterus. No injection or drainage. NECK: Supple, trachea midline. No JVD or lymphadenopathy. CARDIOVASCULAR: Regular rate and rhythm without murmurs, gallops, or rubs. RESPIRATORY: Breath sounds equal bilaterally. No accessory muscle use. GASTROINTESTINAL: Abdomen soft, non-tender, nondistended. EXTREMITIES: No cyanosis, or edema. NEUROLOGICAL: Awake, alert, and oriented x 3. 4/5 muscle strength in all muscle groups, Right transit mechanic strength > left. Normal speech. Cranial nerves grossly intact. (Satish Moctezuma MD) A/P Assessment and Plan Patient is a 61-year-old female w/PMHx of syringomyelia and chronic left sided weakness from syrinx; diabetes, hypertension, hyperlipidemia, and CVA x 2 presenting with persistent weakness and falls s/p CVA. Discharge Planning Anticipate discharge to [facility] today (Satish Moctezuma MD) Attending Attestation Case reviewed and discussed with the resident team. Agree with plan of care as discussed with me and documented in the resident note. (Ria Solis MD) Problem List: (1) Impaired mobility and activities of daily living ICD Codes: Z74.09 - Other reduced mobility Status: Acute Plan: Generalized weakness and deconditioning since discharge on 05/04. Patient desires to be admitted to [facility] for therapy. BMP and CBC within normal limits, UA negative, vital signs stable Brain MRI on 06/03 shows left occipital lobe infarct, otherwise stable exam without evidence of acute process Cervical spine MRI on 06/03 shows severe cervical spinal cord atrophy with central syrinx (Spoke with Radiology on 06/04, Syrinx measures from C2-T2 and appears to be unchanged from previous brain MRIs. However, brain MRIs do not show the whole syrinx) Head MRA on 06/03 is normal -Consult Neurology, appreciate recommendations -Sx may be sequelae from previous hx -D/C Elavil -Neurosurgery consulted per neurology recommendations, recommending continued nonoperative treatment and PT/OT at [facility] -Case management assisting with placement to [facility] (2) History of CVA (cerebrovascular accident) ICD Codes: Z86.73 - Personal history of transient ischemic attack (TIA), and cerebral infarction without residual deficits Status: Chronic Plan: Continue previous recommendations per neurology Continue statin; Lipitor 40 mg by mouth at bedtime Continue anticoagulation; Eliquis 5 mg by mouth twice a day No indication of acute onset focal deficits or acute CVA at this admission (3) HTN (hypertension) ICD Codes: I10 - Essential (primary) hypertension Status: Chronic Plan: BP continues to be WNL Continue home blood pressure medication; losartan 50 mg twice a day -Continue to monitor (4) Anxiety ICD Codes: F41.9 - Anxiety disorder, unspecified Status: Chronic Plan: Continue home Xanax 0.25 mg by mouth twice a day when necessary anxiety (5) Hypothyroid ICD Codes: E03.9 - Hypothyroidism, unspecified Status: Chronic Plan: History of hypothyroidism TSH is 0.013 (low), free T4 1 0.47 (normal) Will continue to hold levothyroxine due to low TSH, will recheck TSH 06/06 Reduce home medication of levothyroxine 75 g daily to 50 g daily, continue to hold for now Follow-up TSH in 6-8 weeks, as outpatient with PCP upon discharge (6) FEN/GI/PPx Status: Acute Plan: Fluids: Encourage by mouth hydration Electrolytes: Within normal limits, follow-up and repeat as needed Nutrition: Regular by mouth diet DVT prophylaxis: Continue Eliquis, SCDs GI prophylaxis: Not indicated (Satish Moctezuma MD) Satish Moctezuma MD Jun 05, 2017 11:56 Ria Solis MD Jun 06, 2017 15:52
--- NOTE | 2017-06-05 12:29 | PD.CONS ---
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 She states that since her last stroke she has had great difficulty rehabilitating herself at home. She has tried to organize outpatient physical therapy has only been able to do it twice. It has generally been very difficult for her and friend to help her mobilize in her current state. Yesterday she "did too much"; she was on the exercise bike and did a lot more activity than usual. She got sore around her buttocks area and the top of her hips from the excessive exercise. She went to the bathroom and after getting off the toilet grab her walker and fell. Her and neighbor were unable to pick her up in the paramedics had to be called to pick her up. Only her knees and bottom make contact with the floor. She did not hit her head at any point. She denies any confusion, vertigo , dizziness before the fall. She states she fell because her muscles felt weak. She fell again for second time last night. The patient came into the ED stating that she is no longer feeling safe at home. Because of the multiple falls and lack of adequate rehabilitation MRI brain and C spine have been obtained. Neurosurgery consultation was requested Review of Systems Constitutional: DENIES: Fever, Weight loss Endocrine: DENIES: Heat/cold intolerance, Polydipsia Eyes: DENIES: Eye inflammation, Eye pain Ears, nose, mouth, throat: DENIES: Throat pain, Hoarseness Respiratory: DENIES: Sputum production, Shortness of breath Cardiovascular: DENIES: Syncope, Dyspnea on Exertion Gastrointestinal: DENIES: Diarrhea, Nausea Genitourinary: DENIES: Abnormal vaginal bleeding, Dysmenorrhea Musculoskeletal: DENIES: Joint Swelling, Back pain Neurologic: DENIES: Headache Psychiatric: DENIES: Depression Past Family Social History Allergies: Coded Allergies: No Known Allergies (Unverified Adverse Reaction, Unknown, 06/03/17) Past Medical History CVA March and April 2017 preDM (on steroids) 11/17 osteopenia 2013 (Pt s/p fosamax weekly estim 2003- 2008), now on bisphosphanate holiday Chronic myofascial and neuropathic pain with neuropathy Chiari malformation with syringomyelia Hyperlipidemia Hypertension Seasonal allergies menopause 2006 Hypothyroid 1989 desensitization shots Right wrist fracture 2007 Left clavicle fracture age 4 Right leg fracture age 12 Head injury with concussion 2000 Past Surgical History Lap Appy 01/17, benign pathology Right wrist 2007 Suboccipital craniectomy, laminectomy C1-C4, myelotomy C4, with insertion of Silastic T-tube for drainage of syrinx into subarachnoid space August 1989 Reported Medications Current Medications Sodium Chloride (NS Flush) 2 ml UNSCH PRN IV FLUSH FLUSH AFTER USING IV ACCESS ; Start 06/03/17 at 06:45; Stop 06/03/17 at 11:50; Status DC Sodium Chloride (NS Flush) 2 ml BID IV FLUSH Last administered on 06/03/17at 09: 33; Start 06/03/17 at 09:00; Stop 06/03/17 at 11:50; Status DC Acetaminophen (Tylenol) 650 mg Q4H PRN PO TEMP > 100.4; Start 06/03/17 at 06:45 ; Stop 06/03/17 at 11:48; Status DC Ondansetron HCl (Zofran Inj) 4 mg Q6H PRN IVP NAUSEA OR VOMITING; Start at 06:45; Stop 06/03/17 at 11:51; Status DC Naloxone HCl (Narcan Inj) 0.4 mg UNSCH PRN IV PUSH SEE LABEL COMMENTS; Start at 06:45; Stop 06/03/17 at 11:51; Status DC Magnesium Hydroxide (Milk Of Magnesia Liq) 30 ml Q12H PRN PO Mild constipation ; Start 06/03/17 at 06:45; Stop 06/03/17 at 11:51; Status DC Alprazolam (Xanax) 0.25 mg Q12HR PRN PO ANXIETY Last administered on 06/04/17at 11:56; Start 06/03/17 at 06:45; Stop 06/04/17 at 15:31; Status DC Apixaban (Eliquis) 5 mg BID PO Last administered on 06/05/17at 08:32; Start at 09:00 Atorvastatin Calcium (Lipitor) 40 mg HS PO Last administered on 06/04/17at 20:59 ; Start 06/03/17 at 21:00 Losartan Potassium (Cozaar) 50 mg BID@0600,1800 PO Last administered on at 06:10; Start 06/03/17 at 18:00 Tizanidine HCl (Zanaflex) 4 mg BID PRN PO MUSCLE SPASM Last administered on 06/03at 17:58; Start 06/03/17 at 06:45; Stop 06/04/17 at 15:31; Status DC Sodium Chloride (NS Flush) 2 ml UNSCH PRN IV FLUSH FLUSH AFTER USING IV ACCESS ; Start 06/03/17 at 11:45 Sodium Chloride (NS Flush) 2 ml BID IV FLUSH Last administered on 06/05/17at 08: 32; Start 06/03/17 at 21:00 Acetaminophen (Tylenol) 650 mg Q4H PRN PO TEMP > 100.4; Start 06/03/17 at 11:45 Ondansetron HCl (Zofran Inj) 4 mg Q6H PRN IVP NAUSEA OR VOMITING; Start at 11:45 Zolpidem Tartrate (Ambien) 5 mg HS PRN PO INSOMNIA Last administered on at 22:01; Start 06/03/17 at 11:45 Naloxone HCl (Narcan Inj) 0.4 mg UNSCH PRN IV PUSH SEE LABEL COMMENTS; Start at 11:45 Magnesium Hydroxide (Milk Of Magnesia Liq) 30 ml Q12H PRN PO Mild constipation ; Start 06/03/17 at 11:45 Sennosides (Senokot) 17.2 mg Q12H PRN PO Moderate constipation; Start 06/03/17 at 11:45 Bisacodyl (Dulcolax Supp) 10 mg DAILY PRN RECTAL SEVERE CONSITIPATION; Start at 11:45 Lactulose (Lactulose Liq) 30 ml DAILY PRN PO SEVERE CONSITIPATION; Start at 11:45 Gadodiamide (Omniscan Pf Inj) 16 ml STK-MED ONCE IVCONTRAST Last administered on 06/03/17at 16:58; Start 06/03/17 at 16:58; Stop 06/03/17 at 16:59; Status DC Levothyroxine Sodium (Synthroid) 50 mcg DAILY@0600 PO Last administered on at 07:04; Start 06/04/17 at 06:00; Status Future Hold Alprazolam (Xanax) 0.25 mg Q12H PO Last administered on 06/05/17at 08:32; Start 06/04/17 at 20:00 Tizanidine HCl (Zanaflex) 4 mg Q12H PO Last administered on 06/05/17 08:32; Start 06/04/17 at 20:00 Family History Dad age 59 [place], history tobacco and alcohol Mom age 69 complications of colon cancer diagnosed in her mid 60s, also had rheumatoid arthritis Siblings with hyperlipidemia otherwise alive and well. Social History No tobacco, no alcohol. NO ILICIT DRUG USE Physical Exam Vital Signs Vital Signs Date Time Temp Pulse Resp B/P (MAP) Pulse Ox O2 Delivery O2 Flow Rate FiO2 06/05/17 11:39 98.3 95 16 117/76 (90) 95 06/05/17 08:10 98.1 86 16 130/97 (108) 96 06/05/17 08:00 75 06/04/17 23:38 98.1 87 17 124/81 (95) 97 06/04/17 23:21 84 06/04/17 20:33 98.8 94 17 124/73 (90) 96 06/04/17 16:20 98.9 93 16 120/80 (93) 96 Physical Exam She is alert, awake and oriented to time, place and person. Speech is fluent. Cranial nerve examination: pupils to be equal, round and reactive to light. Extra-ocular movements are intact. Facial motor and sensory function are normal and symmetrical. Gross hearing appears intact. Sternocleidomastoid and trapezius muscles are symmetrical. Other cranial nerves are intact. Neck is soft and supple with a good range of motion without pain. Motor exam: Mild weakness in both upper and lower extremities. 4/5 with decreased fine motor movements. She has atrophy in her hands. Deep tendon Reflexes are 2+ symmetric with plantar flexion response, No clonus Sensory examination is decreased in both the upper extremities. Cerebellar examination is unremarkable, without deficits. Lungs clear heart regular rhythm and rate Skin warm and dry Laboratory Laboratory Tests Test 06/05/17 06:00 White Blood Count 5.7 Red Blood Count 4.70 Hemoglobin 15.4 Hematocrit 44.0 Mean Corpuscular Volume 93.5 Mean Corpuscular Hemoglobin 32.6 Mean Corpuscular Hemoglobin Concent 34.9 Red Cell Distribution Width 13.4 Platelet Count 236 Mean Platelet Volume 7.3 Blood Urea Nitrogen 8 Creatinine 0.57 Random Glucose 101 Calcium Level 9.1 Sodium Level 143 Potassium Level 3.5 Chloride Level 110 Carbon Dioxide Level 25.3 Anion Gap 8 Estimat Glomerular Filtration Rate 108 Thyroid Stimulating Hormone 3rd Gen 0.009 Result Diagram: 06/05/17 0600 06/05/17 06 Attending Statement I reviewed her radiological studies, including MRI brain and MRI C spine MRI C spine 1. Deformity of the C5 and C6 vertebral bodies which are fused and appears post traumatic. 2. Posterior laminectomy defect from C2-C5 3. Degenerative disc disease at C4-5 and C6-7 as described. 4. No evidence of acute bone marrow edema, fracture disc herniation or spinal stenosis. 5. 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 MRI brain 1. Subacute left occipital lobe infarct 2. Otherwise stable exam without evidence of acute process. 3. No evidence of enhancing intra-or extra-axial lesions She has suffered a recent ischemic infarction. Her cervical spine problems are chronic and the release no change on her syrinx, which has been present for over 30 years. I recommend that she continue nonoperative treatment. Recommend aggressive physical and occupational therapy at [facility]. Continue aggressive pulmonary toilette, nasotracheal suction, and breathing treatments with nebulizers. Daily PT and OT Renal. Continue to monitor closely urine output, BUN and creatinine Endocrine. Continue to Monitor serial Acu checks and SSI as needed in detail ID continue to monitor for signs of infection Continue Protonix for stress ulcer prophylaxis Continue Vladislav fannye and SCD's for DVT prophylaxis Chapito Thapa MD Jun 05, 2017 12:29
--- NOTE | 2017-06-05 21:33 | HHI.DS ---
Discharge Summary Admission Date Jun 03, 2017 at 06:43 Discharge Date: Jun 05, 2017 Admitting Diagnosis Generalized weakness, recurrent falls, low TSH (1) Impaired mobility and activities of daily living Diagnosis: Principal Plan: Generalized weakness and deconditioning since discharge on 05/04. Patient desires to be admitted to [facility] for therapy. BMP and CBC within normal limits, UA negative, vital signs stable Brain MRI on 06/03 shows left occipital lobe infarct, otherwise stable exam without evidence of acute process Cervical spine MRI on 06/03 shows severe cervical spinal cord atrophy with central syrinx (Spoke with Radiology on 06/04, Syrinx measures from C2-T2 and appears to be unchanged from previous brain MRIs. However, brain MRIs do not show the whole syrinx) Head MRA on 06/03 is normal -Consult Neurology, appreciate recommendations -Sx may be sequelae from previous hx -D/C Elavil -Neurosurgery consulted per neurology recommendations, recommending continued nonoperative treatment and PT/OT at [place] -Case management assisting with placement to [facility] ICD Codes: Z74.09 - Other reduced mobility Status: Acute (2) History of CVA (cerebrovascular accident) Diagnosis: Principal Plan: Continue previous recommendations per neurology Continue statin; Lipitor 40 mg by mouth at bedtime Continue anticoagulation; Eliquis 5 mg by mouth twice a day No indication of acute onset focal deficits or acute CVA at this admission ICD Codes: Z86.73 - Personal history of transient ischemic attack (TIA), and cerebral infarction without residual deficits Status: Chronic (3) HTN (hypertension) Diagnosis: Secondary Plan: BP continues to be WNL Continue home blood pressure medication; losartan 50 mg twice a day -Continue to monitor ICD Codes: I10 - Essential (primary) hypertension Status: Chronic (4) Anxiety Diagnosis: Secondary Plan: Continue home Xanax 0.25 mg by mouth twice a day when necessary anxiety ICD Codes: F41.9 - Anxiety disorder, unspecified Status: Chronic (5) Hypothyroid Diagnosis: Secondary Plan: History of hypothyroidism TSH is 0.013 (low), free T4 1 0.47 (normal) Will continue to hold levothyroxine due to low TSH, will recheck TSH 06/06 Reduce home medication of levothyroxine 75 g daily to 50 g daily, continue to hold for now Follow-up TSH in 6-8 weeks, as outpatient with PCP upon discharge ICD Codes: E03.9 - Hypothyroidism, unspecified Status: Chronic (6) FEN/GI/PPx Diagnosis: Secondary Plan: Fluids: Encourage by mouth hydration Electrolytes: Within normal limits, follow-up and repeat as needed Nutrition: Regular by mouth diet DVT prophylaxis: Continue Eliquis, SCDs GI prophylaxis: Not indicated Status: Acute Consultants Neurology, neurosurgery Brief History Mrs. Rowland is a 61-year-old Female w/PHMx of syringomyelia and chronic left sided weakness from syrinx; diabetes, hypertension, hyperlipidemia and CVA in March 2017 and again CVA on 04/26/17. Patient states that since her last stroke she has had great difficulty rehabilitating herself at home. She has tried to organize outpatient physical therapy has only been able to do it twice. It has generally been very difficult for her and friend to help her mobilize in her current state. Yesterday she "did too much"; she was on the exercise bike and did a lot more activity than usual. She got sore around her buttocks area and the top of her hips from the excessive exercise. Around 9: 15PM she went to the bathroom and after getting off the toilet grab her walker and fell. Her and neighbor were unable to pick her up in the paramedics had to be called to pick her up. Only her knees and bottom make contact with the floor. She did not hit her head at any point. She denies any confusion, vertigo, dizziness before the fall. She states she fell because her muscles felt weak. She fell again for second time last night, and The patient came into the ED this morning because she states that she is no longer feeling safe at home. Because of the multiple falls and lack of adequate rehabilitation she would like to go back to [place]. At this time knees and gluteal muscles are still sore. Denies any headache/ confusion. Denies any CP/SOB/dizziness. She denies any acute onset focal weaknesses. Denies any numbness or tingling of any extremity. Patient has continued to follow-up with her PCP, neurologist, and surgical garment fitter. There have been no recent medication changes, aside from stopping Toradol. CBC/BMP: 06/05/17 0600 06/05/17 0600 Significant Findings Laboratory Tests Test 06/03/17 04:45 06/03/17 07:15 06/04/17 06:45 06/05/17 06:00 Hemoglobin 15.8 GM/DL (11.6-15.3) 15.4 GM/DL (11.6-15.3) Hematocrit 46.1 % (35.0-46.0) Neutrophils (%) (Auto) 76.6 % (16.0-70.0) Random Glucose 115 MG/DL (74-106) Sodium Level 146 MEQ/L (136-145) Chloride Level 111 MEQ/L (98-107) 111 MEQ/L (98-107) 110 MEQ/L (98-107) Estimat Glomerular Filtration Rate 84 ML/MIN (>89) Troponin I LESS THAN 0.02 NG/ML Free Thyroxine 1.47 NG/DL (0.76-1.46) Thyroid Stimulating Hormone 3rd Gen 0.013 uIU/ML (0.358-3.740) 0.009 uIU/ML (0.358-3.740) 0.009 uIU/ML (0.358-3.740) Urine Leukocyte Esterase SMALL (NEG) Urine Bacteria RARE /hpf (NONE) Urine Mucus FEW /lpf (OCC) Albumin 3.2 GM/DL (3.4-5.0) Imaging Last 72 hours Impressions Chest X-Ray 06/03/17 0633 Signed Impressions: Service Date/Time: Saturday, June 03, 2017 06:41 - CONCLUSION: No acute disease. There is no evidence of pneumonia. Brent Cadena MD Head CT 06/03/17 0434 Signed Impressions: Service Date/Time: Saturday, June 03, 2017 04:58 - CONCLUSION: 1. Stable remote infarct left occipital lobe. No acute findings. Jose Merritt MD Head Magnetic Resonance Angiography 06/03/17 0000 Signed Impressions: Service Date/Time: Saturday, June 03, 2017 16:23 - CONCLUSION: Normal examination. No evidence of significant stenosis or occlusive disease. No evidence of intraluminal filling defects, vasculopathy, aneurysm or vascular malformation. Haim Cruz MD Cervical Spine MRI 06/03/17 0000 Signed Impressions: Service Date/Time: Saturday, June 03, 2017 16:23 - CONCLUSION: 1. Deformity of the C5 and C6 vertebral bodies which are fused and appears post traumatic. 2. Posterior laminectomy defect from C2-C5 3. Degenerative disc disease at C4-5 and C6-7 as described. 4. No evidence of acute bone marrow edema, fracture disc herniation or spinal stenosis. 5. 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 Haim Cruz MD Brain MRI 06/03/17 0000 Signed Impressions: Service Date/Time: Saturday, June 03, 2017 16:23 - CONCLUSION: 1. Subacute left occipital lobe infarct 2. Otherwise stable exam without evidence of acute process. 3. No evidence of enhancing intra-or extra-axial lesions. Haim Cruz MD PE at Discharge GENERAL: Well-nourished, well-developed patient laying in bed in no acute distress. SKIN: Warm and dry. HEAD: Normocephalic. EYES: No scleral icterus. No injection or drainage. NECK: Supple, trachea midline. No JVD or lymphadenopathy. CARDIOVASCULAR: Regular rate and rhythm without murmurs, gallops, or rubs. RESPIRATORY: Breath sounds equal bilaterally. No accessory muscle use. GASTROINTESTINAL: Abdomen soft, non-tender, nondistended. EXTREMITIES: No cyanosis, or edema. NEUROLOGICAL: Awake, alert, and oriented x 3. 4/5 muscle strength in all muscle groups, Right assistant manager trainee strength > left. Normal speech. Cranial nerves grossly intact. Hospital Course Repeat MRI of the brain was obtained to rule out an acute stroke. MRI C-spine done to evaluate the patient's cervical syrinx which was found to not be enlarged. No acute changes as per above. Neurology consulted. Neurosurgery also consulted due to patient having a history of syringomyelia and evaluation of the patient's cervical spine, recommending continued nonoperative treatment as these are chronic changes and continued physical and occupational therapy. Patient noted to have a low TSH at 0.009 with slightly elevated T4 of 1.47. Home levothyroxine was decreased to 50 g daily and subsequently held pending repeat evaluation of her TSH. Patient is discharged to [facility] as per PT and OT recommending inpatient rehab. Pt Condition on Discharge: Stable Discharge Disposition: Rehab Inpatient Discharge Instructions DIET: Follow Instructions for: As Tolerated, No Restrictions Activities you can perform: Weight Bearing as Pauline Follow up Referrals: PCP Follow-up - 1 Week New Medications: Acetaminophen (Eq Acetaminophen) 325 Mg Tab 650 MG PO Q4H PRN for TEMP > 100.4, #30 TAB Continued Medications: Alprazolam (Xanax) 0.25 Mg Tab 0.25 MG PO Q12HR PRN for ANXIETY, #120 TAB 0 Refills Apixaban (Eliquis) 5 Mg Tab 5 MG PO BID for Blood Clot Prevention, #60 TAB 0 Refills Atorvastatin (Lipitor) 40 Mg Tab 40 MG PO HS for Cholesterol Management, #90 TAB 3 Refills Calcium Carbonate-Cholecalciferol (Calcium 500 +D) 500-400 Mg-Unit Tab 1 TAB PO BID for Calcium Supplement, TAB 0 Refills Losartan (Cozaar) 50 Mg Tab 50 MG PO BID@0600,1800 for Blood Pressure Management for 30 Days, #90 TAB 3 Refills Tizanidine (Zanaflex) 4 Mg Tab 4 MG PO BID PRN for MUSCLE SPASM for 30 Days, #120 TAB 3 Refills Discontinued Medications: Levothyroxine (Synthroid) 75 Mcg Tab 75 MCG PO DAILY@0600 for 30 Days, #90 TAB 3 Refills Satish Moctezuma MD Jun 05, 2017 21:33
== END 2017-06-05 15:24 ==
LOC: NEPC 04:05 → NEDA 06:43 → NEPHCDU 12:48
PROVIDERS: ADMIT Family Medicine; ATTEND Family Medicine
DX: R53.1 Weakness (principal); G95.0 Syringomyelia and syringobulbia; R26.9 Unspecified abnormalities of gait and mobility; I65.1 Occlusion and stenosis of basilar artery; I63.8 Other cerebral infarction; R19.7 Diarrhea, unspecified; M25.561 Pain in right knee; M25.562 Pain in left knee; E03.9 Hypothyroidism, unspecified; F41.9 Anxiety disorder, unspecified; Q07.00 Arnold-Chiari syndrome without spina bifida or hydrocephalus; Z79.01 Long term (current) use of anticoagulants; E78.00 Pure hypercholesterolemia, unspecified; E78.5 Hyperlipidemia, unspecified; I10 Essential (primary) hypertension; R29.6 Repeated falls; M85.80 Other specified disorders of bone density and structure, unspecified site; G62.9 Polyneuropathy, unspecified; W18.39XA Other fall on same level, initial encounter; K59.00 Constipation, unspecified; R73.03 Prediabetes
CPT/HCPCS: 70450; 70544; 70553; 71045; 72141; 80048; 80053; 81001; 83690; 83735; 84439; 84443; 84484; 85025; 85027; 85610; 85730; 93005; 97162; 97166; 99285; A9579; G0378; G8987; G8988